=== PATIENT | female | born 1955 | race Caucasian/White ===

== ENCOUNTER 2023-12-15 07:42 | Outpatient (CLI) | payer MEDICARE, MEDICAID ==
[~2023-12-15] VITALS: Ht 160 cm; Wt 147.0 kg
[2023-12-15] VITALS (7 sets, daily range): BP systolic 117–135; BP diastolic 48–77; PULSE 49–75; RESP 18; O2SAT 98–100
[2023-12-15] MEDS: regadenoson 0.4mg/5ml syringe IV ONE (09:41)
== END 2023-12-15 23:59 | disposition home or self-care (01) ==
LOC: RAD 07:42
PROVIDERS: ATTEND Internal Medicine Interventional Cardiology
DX: R07.9 Chest pain, unspecified (principal)
CPT/HCPCS: 78452; 93017; A9500; J2785